=== PATIENT | male | born 1965 | race Caucasian/White ===

== ENCOUNTER 2018-09-24 09:57 | Day surgery (SDC) | payer OTHER ==
[~2018-09-24] VITALS: Ht 165.1 cm; Wt 66.1 kg
[~2018-09-24 09:57] MED LIST: LIDOCAINE 2% (SDV) 5 ML INJ ONE
[2018-09-24] MEDS ORDERED: METOPROLOL (11:03)
[2018-09-24] MEDS ORDERED: OMEPRAZOLE (11:03)
[2018-09-24 11:04] VITALS: Ht 165.1 cm; Wt 66.1 kg
[2018-09-24 11:23] VITALS: BP 153/95; PULSE 88; RESP 18
--- NOTE | 2018-09-24 11:29 | PREAC ---
Date/Time of Note Date/Time of Note DATE: 09/24/18 TIME: 11:27 Anesthesia Eval and Record Evaluation Time Pre-Procedure Interview DATE: 09/24/18 TIME: 11:27 Age 53 Sex male NPO: 8 hrs Preoperative diagnosis ABDOMINAL PAIN, SCREENING Planned procedure EGD AND COLONOSCOPY Past Medical History Past Medical History: Includes Cardio: HTN, Dyslipidemia Surgery & Anesthesia Issues No known issue Meds Anticoagulation: No Beta Nuzhat within 24 hr: Yes Reason Beta Nuzhat not given: Pt. not on B-Nuzhat Reported Medications [Omeprazole] No Conflict Check 09/24/18 [Metoprolol] No Conflict Check 09/24/18 Meds reviewed: Yes Allergies Coded Allergies: No Known Allergy (Unverified , 09/24/18) Allergies Reviewed: Yes Labs/Studies Labs Reviewed: Reviewed by anesthesiologist test: N/A Pre-procedure Exam Last vitals Vital Signs Date Temp Pulse Resp B/P (MAP) Pulse Ox O2 O2 Flow FiO2 Time Delivery Rate 09/24/18 98.0 88 18 153/95 97 Room Air 11:23 (114) Airway: Adequate mouth opening, Adequate thyromental dist Mallampati: Mallampati I Teeth: Normal Lung: Normal Heart: Normal ASA Physical Status ASA physical status: 2 Emergency: None Planned Anesthetic General/MAC: MAC Planned Pain Management Parenteral pain med Pre-operative Attestations Prior to commencing anesthesia and surgery, the patient was re-evaluated, there was verification of: *The patient's identity *The results of appropriate recent lab work and preoperative vital signs *The above evaluation not changing prior to induction *Anesthetic plan, risk benefits, alternative and complications discussed with patient/family; questions answered; patient/family understands, accepts and wishes to proceed. CAMILA BABCOCK Sep 24, 2018 11:29
[2018-09-24] MEDS ORDERED: EPHEDrine SULFATE 50 MG/5 ML SYG IV PRN (11:30)
[2018-09-24] MEDS ORDERED: LABETALOL HCL 20MG INJ IV PRN (11:30)
[2018-09-24] MEDS ORDERED: hydrALAzine 20 MG INJ IV PRN (11:30)
[2018-09-24] MEDS ORDERED: FENTAnyl 50 MCG/ML VIAL IV PRN (11:30)
[2018-09-24] MEDS ORDERED: ONDANSETRON 4 MG INJ IV PRN (11:30)
[2018-09-24] MEDS ORDERED: PROPOFOL 60 ML ONE (11:34)
[2018-09-24 12:32] VITALS: BP 121/80; PULSE 86; RESP 18
== END 2018-09-24 14:11 | disposition home or self-care (01) ==
LOC: GIL 09:57
PROVIDERS: ATTEND Internal Medicine Gastroenterology
DX: Z12.11 Encounter for screening for malignant neoplasm of colon (principal); K64.8 Other hemorrhoids; K21.9 Gastro-esophageal reflux disease without esophagitis; K29.60 Other gastritis without bleeding
CPT/HCPCS: 88305; 88312